=== PATIENT | male | born 1990 | race Caucasian/White ===

== ENCOUNTER 2019-10-11 20:53 | Emergency (ER) | payer MEDICAID ==
[~2019-10-11] VITALS: Ht 175.3 cm; Wt 127.0 kg
[2019-10-11 21:23] VITALS: BP_SYST 157
[2019-10-12] MEDS ORDERED: ACETAMINOPHEN 325 MG TABLET PO ONE (00:45)
[2019-10-12 01:04] VITALS: BP_SYST 150
== END 2019-10-12 01:04 | disposition home or self-care (01) ==
LOC: SED 20:53
DX: J02.8 Acute pharyngitis due to other specified organisms (principal); B97.89 Other viral agents as the cause of diseases classified elsewhere
CPT/HCPCS: 36415; 86403; 87081; 99283